=== PATIENT | male | born 1950 | race Caucasian/White ===

== ENCOUNTER → 2017-07-16 | Outpatient (CLI) | payer MEDICARE ==
[~2017-07-16] MED LIST: ASPIR 8181 MG PO; CYMBALTA60 MG PO; DILANTIN100 MG PO; MOBIC15 MG PO; MOBIC7.5 MG PO; NEURONTIN 300M300 M2 PO; NORCO 7.5-3251 EACH PO; TRAMADOL 50 MG50 MG PO; TRAMADOL HCL150 MG PO; TYLENOL P.M. E1 EAC3 PO; TYLENOL PM EX-1 EACH PO; ZANAFLEX4 MG PO; ZOCOR 20 MG TAB20 M1 PO; [UNRECOGNIZED DRUG - OTHER] PO; benzotropine PO
--- NOTE | 2017-07-21 07:21 | PAINCON ---
[address] [address] PAIN MANAGEMENT CONSULTATION Name: ANIYA FRANCISCO Room: [facility] Isaias#: [id number] Admission: 07/16/17 Attend Phys: Vikash Alexander Discharge: Date of : 52 Report #: [id number] THIS REPORT FOR: //name// CC: Jim Potter DATE OF SERVICE: 07/16/2017 The patient is a very pleasant 67-year-old gentleman typically treated for lumbar radiculopathy, progressed to have a decompressive laminectomy, myofascial pain requiring complex medication management. Last visit, we did a right L5 transforaminal epidural injection 05/21/2017 with improvement of radicular pain, in fact he notes the radicular pain in the right side is essentially gone. He has had several incidental issues. The patient developed some tremor in his right hand. He typically notices it when he is tired or at the end of the day. Dr. Clark started him on benztropine with some efficacy. He has been on it about 2 weeks now. The patient has seen IBAN Esquivel, she recommended 2 books on managing pain and dietary recommendations. He is working with her regarding anxiety, stress and coping skills for chronic pain. In the interval since we last saw him, he did travel to [place], did a fair bit of walking, has developed increasing pain. This is a little different than prior. This is actually in the left low back in the SI area radiating to the lateral hip. Exacerbated with standing or walking. He is relatively comfortable when he is recumbent. PHYSICAL EXAMINATION: Shows a 67-year-old gentleman, BMI is 27 kilograms per meter squared. Blood pressure 152/78, pulse 81, respirations 18. Alert and oriented to person, place and time, judged to be a reasonable historian. Cervical range of motion is generally full. Does not exhibit tremor in the right arm at this time. Rises from chair using armrest. Gait is mildly antalgic, somewhat favoring the left leg, has significant tenderness over the left SI. I am pleased to note that straight leg raise is negative bilaterally. Lower extremity strength is generally preserved. Positive Deyvi test on the left, no pain over the hip and no pain with resistance to abduction (negative trochanteric bursa). Positive Gaenslen's test. ASSESSMENT: Symptomatic sacroiliac joint dysfunction by clinical exam, history of lumbar radiculopathy status post decompressive laminectomy, relatively quiescent at present. RECOMMENDATION: 1. Continue tramadol 50 mg 1 tablet up to 5 a day, [place] [address] PAIN MANAGEMENT CONSULTATION Name: ANIYA FRANCISCO Room: [facility] YOVANA Esparza#: [id number] Admission: 07/16/17 Attend Phys: Vikash Alexander Discharge: Date of : 52 Report #: [id number] for 150 tablets with 3 refills. 2. I have taken the liberty of writing for hydrocodone 7.5/325, limit 40 tablets. He can use this for significant pain and is not met with the tramadol. He is somewhat loathe to use a stronger opiate than tramadol, but he did have significant exacerbation of pain when he was walking on his trip to [place]. We wanted to have some agent to be available for "rescue." 3. Left SI joint injection under fluoroscopy today. We talked about core strengthening exercises and follow up simply as needed. PROCEDURE NOTE: Left SI joint injection under fluoroscopy. PROCEDURE: After informed consent was obtained, the patient was taken to the fluoroscopy suite and placed in prone position. After sterile prep and drape, skin wheal was raised. A 22-gauge stylet needle was placed to contact the inferior aspect of the left SI. 1 mL of Omnipaque was injected showed spread primarily into the joint. 40 mg triamcinolone plus 2 mL of 0.5% preservative-free bupivacaine injected into and around the joint. Needle was removed, area was cleansed, Band-Aids applied. The patient was allowed to ambulate to recovery room, monitored for an appropriate period of time. When the patient got up to leave, he did have some weakness in the left leg. We kept him for a prolonged stay, about an hour. He was starting to see a resolution of the "spread" of local anesthetic. He had a little sciatic weakness. We talked about this being not unexpected sequelae of injection. We had covered this in the risks, benefits prior to the procedure. The patient was discharged in good stable condition. I assured the patient that leg should continue to get stronger back to baseline within a few hours. If he has any concerning issues with weakness greater than 24 hours, we will have him return to the clinic for further evaluation. Discharged in good and stable condition. <ELECTRONICALLY SIGNED> By: Inocente Potter DO 07/21/17 0721 1252 1947Inocente Potter DO /nt
== END | disposition home or self-care (01) ==
LOC: M.PC 01:38
DX: M53.3 Sacrococcygeal disorders, not elsewhere classified (principal); M54.16 Radiculopathy, lumbar region; Z98.890 Other specified postprocedural states

== ENCOUNTER → 2017-08-27 | Outpatient (CLI) | payer MEDICARE ==
--- NOTE | 2017-08-28 09:41 | PAINCON ---
[address] [address] PAIN MANAGEMENT CONSULTATION Name: ANIYA FRANCISCO Room: [facility] Isaias#: [id number] Admission: 08/27/17 Attend Phys: Vikash Alexander Discharge: Date of : 51 Report #: [id number] THIS REPORT FOR: //name// CC: Jim Potter DATE OF SERVICE: 08/27/2017 HISTORY OF PRESENT ILLNESS: The patient is a very pleasant 67-year-old gentleman being treated for lumbar radiculopathy status post decompressive laminectomy. Component of SI mediated pain, we did an SI joint injection back in June which did afford good relief of his axial back pain. He returns to the pain clinic today. He had reluctantly started taking 1 hydrocodone 7.5/325 in the morning. He is taking less tramadol. We talked about concerns for opiate habituation and tolerance. Apparently, the patient's father had been habituated to opiates for "multiple decades." The patient personally is very aware of risks of habituation, tolerance, etc. We had had a long talk about decreasing tramadol of which he was taking 5 a day and using a single hydrocodone for ongoing pain. He is doing well, taking 1 hydrocodone in the morning and 2 or 3 tramadol in the evening. He does complain of ongoing right radicular pain, somewhat in an L4 pattern, lateral leg. Notes if he stands or walks for any period of time, leg becomes quite problematic and does interfere with function. PHYSICAL EXAMINATION: GENERAL: Does show pleasant 67-year-old gentleman, BMI is about 25 kilograms per meter squared. VITAL SIGNS: Stable as noted on the chart (blood pressure 124/95, pulse of 79, respirations of 16). MUSCULOSKELETAL: Rises from chair using the armrest. Gait is nominally antalgic, though he does have objective decreased right dorsiflexion strength. Grossly positive straight leg raise on the right and diminished right patellar reflex. He had prior had lumbar decompressive laminectomy on 01/10/2017. We reviewed the fact that opiate medications are being used to provide analgesia adequate to support activities of daily living, not attempting to achieve a specific pain score on the 0-10 Visual Analog Scale. The current opiate medications are providing sufficient analgesia to allow the patient to participate in activities of daily living. The patient is not exhibiting any aberrant behavior suggestive of drug diversion. The patient is not having any adverse reactions to medications. The patient is not suffering from daytime somnolence or mental acuity changes. The patient is managing opiate-induced constipation with appropriate xjkm-hrw-fzylos[place] [address] PAIN MANAGEMENT CONSULTATION Name: ANIYA FRANCISCO Room: [facility] YOVANA Esparza#: [id number] Admission: 08/27/17 Attend Phys: Vikash Alexander Discharge: Date of : 51 Report #: [id number] considerations. The patient was counseled on concern for caution with operating a motor vehicle while using opiate medications. A physical exam was performed and the patient's functional status was evaluated. All patients with back pain were advised against the bed rest greater than 4 days and were advised to return to normal activities. Pain score assessment was noted and the treatment plan was reviewed with the patient. All current medications, both prescribed and OTC were reviewed and reconciled on the electronic medical record. Tobacco screening was accomplished and smoking cessation was advised when indicated. BMI was noted and diet/exercise modification was recommended for all patients following outside normal parameters. I reviewed with the patient today their responsibilities to safeguard prescription medications, reviewed their responsibility to utilize medications only as prescribed by the physician. They are to seek and receive pain medications only from 1 physician group ( [facility]). They are to use 1 pharmacy and keep the clinic informed if they change pharmacies. Their responsibilities include making followup visits in a timely fashion and to avoid abrupt discontinuation of medication usage. Their responsibilities further include bringing their medications (bottles from the pharmacy with residual pills) to the visit for possible confirmation of pill counts and the patient understands it is their responsibility to submit to random drug screens to ensure both that the medications prescribed are present, and that no other controlled substances are present. All prescriptions provided today were generated electronically. ASSESSMENT: Symptomatic lumbar radiculopathy, status post decompressive laminectomy, ongoing chronic pain requiring complex medication management with right L4 radicular pain pattern. RECOMMENDATIONS: 1. The patient has been worked with Dr. Lauren Boyd regarding coping skills. He follows with his neurologist, Dr. Clark. He is doing well on current medication, but has had ongoing right L4 radicular pain. We will seek MRI of lumbar spine with and without contrast. 2. Hydrocodone 7.5/325, dispensed 30 tablets 4-week release, take 1 a day. He just started taking the prior prescription I gave him for 40 tablets, 10 days ago, so he should have quantity sufficient for another 30 days. 3. We will see the patient back in about 7 weeks to reevaluate. At that time, we will go over the MRI. If he has surgical pathology, we will move forward with referring the patient back to surgery. If he does not have obvious surgical pathology, we may consider spinal cord stimulator as a possible therapeutic option. The patient discharged in good and stable condition after approximately [facility] [address] [place] [address] PAIN MANAGEMENT CONSULTATION Name: ANIYA FRANCISCO Room: [facility] Esparza#: [id number] Admission: 08/27/17 Attend Phys: Vikash Alexander Discharge: Date of : 51 Report #: [id number] 25-minute visit from 8:10-8:35, greater than 50% of the time spent counseling the patient. <ELECTRONICALLY SIGNED> By: Inocente Potter DO 08/28/17 0941 0835 [id number] Potter DO /nt
== END ==
LOC: M.PC 01:45
DX: M54.16 Radiculopathy, lumbar region (principal); G89.29 Other chronic pain; Z79.899 Other long term (current) drug therapy

== ENCOUNTER → 2017-08-28 | Outpatient (CLI) | payer MEDICARE | LOC: M.MRI 14:02 | DX: M54.16 Radiculopathy, lumbar region (principal); M47.896 Other spondylosis, lumbar region ==

== ENCOUNTER → 2017-09-17 | Outpatient (CLI) | payer MEDICARE ==
--- NOTE | 2017-09-22 08:02 | PAINCON ---
[facility] [address] [place] [address] PAIN MANAGEMENT CONSULTATION Name: ANIYA FRANCISCO Room: [facility] Tyron.#: [id number] Admission: 09/17/17 Attend Phys: Vikash Alexander Discharge: Date of : 51 Report #: [id number] THIS REPORT FOR: //name// CC: Jim Potter The patient is a very pleasant 67-year-old gentleman being treated for lumbar radiculopathy status post decompressive laminectomy with ongoing axial back pain, right lateral calf, posterior thigh, charley horse sensation radiating down to the leg. MRI from 08/28/2017 notes neural foraminal stenosis at L5-S1 along with prior decompression at this level. Last visit 07/16/2017 with a left SI joint injection, which helped dramatically with a left SI mediated pain, chronic ongoing right radicular pain remains problematic. Physical exam shows 6 feet tall, 197 pound gentleman, BMI is 26.7 kilograms per meter squared. Blood pressure 133/72, pulse 77, respirations are 16. Rises from chair using armrest, modestly antalgic gait, positive straight leg raise on the right. Right lower extremity strength is about 4/5, left is stronger at 5/5. Gait is tandem. He is alert and oriented to person, place, and time, judged to be a reasonable historian. ASSESSMENT: Symptomatic lumbar radiculopathy, status post decompressive laminectomy. RECOMMENDATION: We made a prolonged discussion today about therapeutic options. At this point, he may benefit from right L5-S1 foraminotomy. However, given prior surgery at this level, typically surgeons are somewhat hesitant to move forward with a reoperation due to scar tissue in the area. The patient is an excellent candidate for spinal cord stimulator. We talked about this at length today. I would recommend a high frequency spinal cord stimulator (Nevro). He did have psychological evaluation, 07/01/2017 with Lauren Boyd. He obviously has no psychological hindrances. He is highly motivated gentleman. He wants to get back to running. He had been a lifelong distance runner. He enjoys physical activity and is quite stymied and how axial back and right lumbar radicular pain has impacted his lifestyle. He is loathe to use opiate analgesics. To this I gave him great credit. We had a prolonged visit from 9:25-9:50. We spent reviewing indications, risks, benefits, and proposed mechanism of action of the spinal cord stimulator. Ultimately, [place] [address] PAIN MANAGEMENT CONSULTATION Name: ANIYA FRANCISCO Room: [facility] YOVANA Esparza#: [id number] Admission: 09/17/17 Attend Phys: Vikash Alexander Discharge: Date of : 51 Report #: [id number] very desirous of moving forward. He states he will discuss with his when they come to a conclusion. He will give us a call to schedule trial. <ELECTRONICALLY SIGNED> By: Inocente Potter DO 09/22/17 0802 1524 1947[facility] Centerjuliette Potter DO /nt
== END ==
LOC: M.PC 00:35
DX: M54.16 Radiculopathy, lumbar region (principal)

== ENCOUNTER → 2017-10-08 | Outpatient (CLI) | payer MEDICARE ==
--- NOTE | 2017-10-09 09:37 | PAINCON ---
[facility] [address] [place] [address] PAIN MANAGEMENT CONSULTATION Name: ANIYA FRANCISCO Room: [facility] YOVANA Esparza#: [id number] Admission: 10/08/17 Attend Phys: Vikash Alexander Discharge: Date of : 51 Report #: [id number] THIS REPORT FOR: //name// CC: Jim Potter DATE OF SERVICE: 10/08/2017 HISTORY OF PRESENT ILLNESS: The patient is a very pleasant 67-year-old gentleman, being treated for lumbar radiculopathy, status post decompressive laminectomy, axial back pain and lumbar radicular pain. Last seen in the pain clinic on 09/17/2017. We elected to proceed with spinal cord stimulator trial today. The patient presents to pain clinic today for same. Notes the pain is ongoing low back, right leg. Vital signs are stable as noted in the chart. ASSESSMENT: Symptomatic lumbar radiculopathy status post decompressive laminectomy, axial back pain, failed back syndrome. PROCEDURE: 2-lead spinal cord stimulator trial, thoracolumbar under fluoroscopy. DESCRIPTION OF PROCEDURE: After written and informed consent was obtained, intravenous access was established. The patient was given 1 gram of Ancef, taken to the fluoroscopy suite and placed in prone position with appropriate abdominal bolstering. Wide surgical prep and drape was accomplished. Skin wheal with Xylocaine was raised. A stab incision with a #11 scalpel was made. A 14-gauge epidural Tuohy needle was inserted and placed in the interspinous ligaments between T12 and L1. Stylet was removed and saline filled glass syringe was attached. Using biplanar fluoroscopy and continuous plunger pressure, the needle was easily advanced in the epidural space. Lead was then advanced in the posterior aspect of the epidural space to the top of T8. Procedure was repeated approximately 1 cm inferior with another right paramedian approach into the T12-L1 epidural space and a second lead easily advanced into the posterior aspect of the epidural space to the top of T9. AP and lateral projections showed good needle placement. With continuous fluoroscopy, the stylets and needles were removed. The leads were secured with Steri-Strips and mastic. Wide bolster dressing was applied. The patient was allowed to ambulate to recovery room, monitored for an appropriate period of time, discharged in good and stable condition. Fluoroscopy time was under 30 seconds. Follow up in 1 week for reevaluation. Has contact information for the pain clinic physician president educational institution at [facility] if he has any concerns with increasing pain, [place] [address] PAIN MANAGEMENT CONSULTATION Name: ANIYA FRANCISCO [id number] Admission: 10/08/17 Attend Phys: Vikash Alexander Discharge: Date of : 52 Report #: [id number] weakness, paresthesia, fever, chills. Otherwise, we will contact the [employer], spinal cord stimulator device rep. <ELECTRONICALLY SIGNED> By: Inocente Potter DO 10/09/17 0937 1452 [id number] Potter DO /nt
== END | disposition home or self-care (01) ==
LOC: M.PC 04:41
DX: Z46.2 Encounter for fitting and adjustment of other devices related to nervous system and special senses (principal); M54.16 Radiculopathy, lumbar region; M96.1 Postlaminectomy syndrome, not elsewhere classified; Z98.890 Other specified postprocedural states; Z79.82 Long term (current) use of aspirin; Z79.891 Long term (current) use of opiate analgesic; Z79.899 Other long term (current) drug therapy

== ENCOUNTER → 2017-10-15 | Outpatient (CLI) | payer MEDICARE ==
--- NOTE | 2017-10-20 08:35 | PAINCON ---
[address] [address] PAIN MANAGEMENT CONSULTATION Name: ANIYA FRANCISCO Room: [facility] Isaias#: [id number] Admission: 10/15/17 Attend Phys: Vikash Alexander Discharge: Date of : 51 Report #: [id number] THIS REPORT FOR: //name// CC: Jamar Potter The patient is a very pleasant 67-year-old gentleman long treated for lumbar radiculopathy. Ultimately, I have referred him to Dr. Onel Fairbanks and he had a right microdiskectomy L5-S1 on 01/09/2017. Unfortunately, he had continued to have ongoing lumbar radicular pain, had failed conservative therapies including epidural injections, both midline and targeted transforaminal. Progressed to have a spinal cord stimulator on 10/08/2017 (Nevro high frequency). He returns to the pain clinic today noting dramatic improvement in function following the trial. He was able to sleep better and use nominal pain medication (typically would use tramadol 50 mg 2 in the afternoon and 1 in the evening, tizanidine for spasm and hydrocodone 7.5/325 up to 1 a day along with meloxicam 15 mg a day). The patient is very desirous to moving forward with spinal cord stimulator implant. He would like to have this done with percutaneous leads as soon as possible. I suggested we refer the patient to Dr. London Callejas for percutaneous implant of high frequency spinal cord stimulator (Nevro). Lead was removed today, area was cleansed, Band-Aids applied, insertion site looks good. The patient was given contact information for Dr. London Callejas and we will send his medical records as well. On reviewing the patient's history, is a delightful gentleman, retired manager ecommerce. He had been a marathoner, enjoyed running with his daughters. He had run 5K, 10K, and half marathons including marathons throughout his life. He had enjoyed reasonably good health. He took a statin agent for dyslipidemia and some multivitamins. Surgical history include only tonsillectomy in childhood and the aforementioned microdiskectomy by Dr. Onel Fairbanks last year. Today, I did take the liberty of renewing hydrocodone 7.5/325 one tablet as needed for pain, limit 60 tablets, I renewed tramadol 50 mg up to 5 tablets a day, 150 tablets with 3 refills and tizanidine 4 mg 1 tablet t.i.d. 90 prescription with a refill. I will be happy to see the patient on an as needed basis. I did inform the patient that I am leaving the practice and he will need to find a pain clinic physician on his insurance panel. He does live in the [place] area and we will see if Dr. Keo Wilkins can continue to manage his care, [place] [id number] PAIN MANAGEMENT CONSULTATION Name: ANIYA FRANCISCO Room: [facility] YOVANA Esparza#: [id number] Admission: 10/15/17 Attend Phys: Vikash Alexander Discharge: Date of : 51 Report #: [id number] with a spinal cord stimulator implant he actually may not require any pain management moving forward. Discharged in good and stable condition. <ELECTRONICALLY SIGNED> By: Inocente Potter DO 10/20/17 0835 1427 0030Inocente Potter DO /chiquita
== END ==
LOC: M.PC 03:03
DX: M54.16 Radiculopathy, lumbar region (principal)

== ENCOUNTER → 2018-01-08 | Outpatient (CLI) | payer MEDICARE ==
--- NOTE | 2018-01-14 14:16 | PAINCON ---
[place] [address] PAIN MANAGEMENT CONSULTATION Name: FRANCISCOANIYA RAHMAN Room: [facility].Vikas.#: [id number] Admission: 01/08/18 Attend Phys: Moise Wilkins MD Discharge: Date of : 51 Report #: [id number] THIS REPORT FOR: //name// CC: Moise Laws MD DATE OF SERVICE: 01/08/2018 PRIMARY CARE PHYSICIAN: Jim Laws MD FOLLOWUP COMPLAINT: Low back pain into the right leg. FOLLOWUP HISTORY: The patient is a 67-year-old gentleman who has been followed in the pain clinic at [facility] by Dr. Inocente Potter. This is my first visit with the patient. The patient has had a long history of pain problems. He has undergone back surgery. He has undergone treatment for chronic low back pain. He has had some problems with neck pain in the past. He has been treated for lumbosacral spondylosis. The patient has undergone a radiofrequency lesioning of the medial branches in the low back area involving the lower back. He has undergone sacroiliac joint injections. He has undergone physical therapy for strengthening exercises, yoga, massage, sports, chiropractic manipulations, acupuncture and medication management. He has been treated with opioid medications and complex medication management for this chronic pain. The patient has had cervical epidural steroid injection for cervical radicular pains. MRI on 10/03/2016 indicated an L5-S1 superimposed broad-based right foraminal disk protrusion extending into the right lateral region resulting in severe right neural foraminal stenosis and effacement of the exiting nerve root at L5. ALLERGIES: No known drug allergies. MEDICATIONS: Meloxicam 15 mg every other day. Medications, which were used, but have been discontinued include aspirin 81 mg, hydrocodone 7.5/325, tizanidine 4 mg t.i.d., Ultram, turmeric as well as benztropine. The patient continues with Mobic 15 mg, Zocor 20 mg, and tramadol 50 mg as directed. PAST MEDICAL HISTORY: Problems with diverticulosis, joint disease/arthritis, CVA (Dejerine-Roussy syndrome), cervical radiculopathy. PAST SURGICAL HISTORY: Tonsillectomy in 9, tonsillectomy in 1963. Spinal cord stimulator implant on 12/09/2017. SOCIAL HISTORY: He is a retired environmental program manager. REVIEW OF SYSTEMS: Headache, nosebleed, frequent diarrhea, abdominal pain, [place] [address] PAIN MANAGEMENT CONSULTATION Name: ANIYA FRANCISCO [id number] Admission: 01/08/18 Attend Phys: Moise Wilkins MD Discharge: Date of : 52 Report #: [id number] numbness and tingling. PAIN CLINIC ASSESSMENT: 1. History of osteoarthritic changes in the low back area. 2. Height 6 feet, weight 194 pounds, BMI is 26.3. 3. Vital signs: Blood pressure 163/103, heart rate 90, respiratory rate 16, room air saturation 97%, temperature 98.4. 4. Pain intensity 0/10, does have some mid-morning aching, which improves with use of tramadol. 5. Blood thinner. The patient is not on a blood thinning medication. 6. Hypertension. The patient is not on an antihypertensive medication, opioid therapy greater than 6 weeks. The patient is using tramadol. 7. Risk assessment tool. 8. Functional assessment tool. 9. Recreational drug use. The patient denies use of recreational drugs. 10. Tobacco. The patient denies use of tobacco. 11. Alcoholic beverage. The patient denies chronic use of alcoholic beverages. 12. All of the other aforementioned past medical history events. IMPRESSION: Low back pain - right leg pain. RECOMMENDATIONS: We discussed treatment options with the patient. At this juncture, we will continue with his current medical regimen. He feels that the spinal cord stimulator has been working very well. We will continue with tizanidine 4 mg p.o. p.r.n. muscle spasms, a total of 180 have been written. The patient will call us if he has any concerns. He will continue with his current medical regimen and follow up with his surgeon. We would like to thank you for letting us participate in his care. We hope he continues to improve. <ELECTRONICALLY SIGNED> By: Moise Wilkins MD 01/14/18 1416 2324 0151Beena. Keo Wilikns MD /ANA
== END ==
LOC: M.PC 03:19
DX: M54.5 Low back pain (principal); M79.604 Pain in right leg; G89.29 Other chronic pain; Z79.899 Other long term (current) drug therapy

== ENCOUNTER → 2018-09-11 | Outpatient (CLI) | payer MEDICARE | LOC: M.ULTRA 12:47 | DX: R20.0 Anesthesia of skin (principal); R20.2 Paresthesia of skin; Z86.73 Personal history of transient ischemic attack (TIA), and cerebral infarction without residual deficits ==

== ENCOUNTER → 2018-10-01 | Outpatient (CLI) | payer MEDICARE ==
[~2018-10-01] MED LIST changes: +PRILOSEC OTC20 MG PO
--- NOTE | ~2018-10-01 | PAINCON ---
[address] [address] PAIN MANAGEMENT CONSULTATION Name: ANIYA FRANCISCO Room: [facility] YOVANA Esparza#: [id number] Admission: 10/01/18 Attend Phys: Moise Wilkins MD Discharge: Date of : 52 Report #: [id number] THIS REPORT FOR: //name// CC: Heide Wilkins DATE OF SERVICE: 10/01/2018 CHIEF COMPLAINT: Right leg pain. HISTORY: The patient is a 68-year-old gentleman who has been followed in the pain clinic because of chronic pain. As you may recall, he has right leg pain. He has undergone placement of a spinal cord stimulator. Feels that this is 90% beneficial. He is happy with the procedure and the results. Continues to take hydrocodone on occasional basis. He would like to continue with his medications. He has requested a script for tramadol. He continues to be quite active. States that he runs about 5 miles every other day. He has undergone radiofrequency lesioning in the medial branches in the low back area in the past. Has had SI joint injections. Continues with physical therapy, continues to stretch, he is quite active. He has had chiropractic manipulations. He has had cervical radicular pain and epidural steroid injections. He returns today with a desire to have his medications renewed. ALLERGIES: No known drug allergies. CURRENT MEDICATIONS: Meloxicam 15 mg every other day, medications use, but discontinued his aspirin 81 mg, hydrocodone 7.5 mg, tizanidine 4 mg 1 p.o. t.i.d., Ultram, turmeric as well as benztropine. Continues to find Mobic, Zocor and tramadol beneficial. PAIN CLINIC ASSESSMENT/PQRS: 1. The patient has history of osteoarthritic changes in his low back area. 2. Height 6 feet, weight 200 pounds, BMI is 27.3. 3. Vital signs: Blood pressure 151/106, heart rate 83, respiratory rate 16, room air saturation 94%, and temperature 98.3. 4. Pain intensity 0/10. 5. Blood thinner. The patient is not on a blood thinning medication. 6. Hypertension. The patient is not being treated for hypertension. 7. Opioids. The patient uses tramadol medication. 8. Risk assessment tool, low for opioid use. 9. Recreational drug use. The patient denied. 10. Tobacco: The patient denies use of tobacco. 11. Alcohol: The patient denies chronic use of alcoholic beverages. PHYSICAL EXAMINATION: GENERAL: The patient is a well-developed, well-[place] [address] PAIN MANAGEMENT CONSULTATION Name: ANIYA FRANCISCO Room: [facility] Esparza#: [id number] Admission: 10/01/18 Attend Phys: Moise Wilkins MD Discharge: Date of : 52 Report #: [id number] his stated age. He is alert and oriented x 3. Affect is appropriate. Speech is fluent. HEENT: Normocephalic, atraumatic. Extraocular eye muscles intact. Sclerae nonicteric. Mucous membranes are moist. NECK: Without adenopathy or JVD. The patient is without significant scoliosis, kyphosis or lordosis. Upper extremity muscle strength judged to be 5/5 for the major muscle groups in lower extremities 5/5 for the major muscle groups in the lower extremity. IMPRESSION: Chronic pain in low back area improved with a spinal cord stimulator. RECOMMENDATIONS: We will continue with his current medications of tramadol 50 mg 1 p.o. every 4 hours p.r.n. The patient will call us if he has any concerns. We would like to thank you for letting us participate in his care. We hope he continues to improve. By: [id number]. Keo Wilikns MD /nt
== END ==
LOC: M.PC 05:19
DX: G89.29 Other chronic pain (principal); M54.5 Low back pain; Z79.899 Other long term (current) drug therapy; Z79.891 Long term (current) use of opiate analgesic

== ENCOUNTER → 2019-07-27 | Outpatient (CLI) | payer MEDICARE ==
--- NOTE | 2019-07-30 08:24 | PAINCON ---
[address] [address] PAIN MANAGEMENT CONSULTATION Name: ANIYA FRANCISCO Room: [facility] Esparza#: [id number] Admission: 07/27/19 Attend Phys: Moise Wilkins MD Discharge: Date of : 52 Report #: [id number] THIS REPORT FOR: //name// cc: Jessica Casey Kathleen M. DO ~ THIS REPORT FOR: //name// CC: JESSICA CASEY DO Jessica Wilkins DATE OF SERVICE: 07/27/2019 CHIEF COMPLAINT: The stimulator has worked very well. HISTORY: The patient is a 69-year-old gentleman who has been followed in the pain clinic because of chronic pain in the low back area. As you may recall, he underwent placement of a spinal cord stimulator. He feels that this has been quite beneficial. He is able to do quite a number of things with less pain and discomfort. He has some pain down in his right leg and low back area. He still walks and runs a couple of times a week. He rates his pain as a 2/10. Overall, he is very pleased with his choice of receiving a spinal cord stimulator. He has a history of cervical radiculopathy and has undergone epidural steroid injections in the cervical area. He is not having very much discomfort at this point. He finds that the meloxicam medication is helpful. He is not having any problems with his stomach as a result of use of this nonsteroidal anti-inflammatory medication. He also uses tramadol as 3 to 4 tablets daily. He has returned today to continue with his use of tramadol as well as renewal of his meloxicam. ALLERGIES: No known drug allergies. CURRENT MEDICATIONS: Meloxicam 15 mg every other day, hydrocodone 7.5 mg in the past and using tramadol at this juncture, tizanidine 4 mg, turmeric, benztropine, Zocor. PAIN CLINIC ASSESSMENT AND PQRS: 1. The patient has a history of osteoarthritis with changes in his low back area. He is not being treated for rheumatoid arthritis. 2. Height 6 feet 0 inches, weight 203 pounds, BMI is 27.6. 3. Vital signs: Blood pressure 151/98, heart rate 81, respiratory rate 16, room air saturation 98%, and temperature 98.1. 4. Pain score 2/10. 5. Fall history: The patient has not fallen in the last 3 months. 6. Blood thinner. The patient is not on a blood thinning medication. 7. Hypertension. The patient is not being [place] [address] PAIN MANAGEMENT CONSULTATION Name: NOLANCAMERON Room: [facility]#: [id number] Admission: 07/27/19 Attend Phys: Moise Wilkins MD Discharge: Date of : 52 Report #: [id number] 8. Opioids. The patient uses tramadol to help control with the pain. 9. Recreational drug use: The patient denies. 10. Tobacco: The patient denies use of tobacco. 11. Alcohol: The patient denies chronic use of alcoholic beverages. PHYSICAL EXAMINATION: GENERAL: The patient is a well-developed, well-nourished white male. Appears his stated age. He is alert and oriented x 3. His affect is appropriate. Speech is fluent. HEENT: Normocephalic, atraumatic. Extraocular eye muscles intact. Sclerae nonicteric. Mucous membranes are moist. NECK: Without adenopathy or JVD. The patient is not complaining of problems with the upper extremity. MUSCULOSKELETAL: Upper extremity muscle strength judged to be 5-/5 for the major muscle groups in the upper extremity. Lower extremity muscle strength 5/5 for the major muscle groups in lower extremity. The patient has some pain in the low back area and some pain down into his right leg, but not very problematic at this point. IMPRESSION: Chronic pain, improved with spinal cord stimulator. RECOMMENDATIONS: We discussed treatment options with the patient. At this juncture, we will continue with the patient's use of tramadol. He finds that taking this medication continues to be efficacious. He is not having any problems with it. He finds that meloxicam has been helpful. He is not having any GI complaints. He will continue with the medication. Should he notice some GI problems, he will then stop taking the medication and if need be he can call his primary or call the pain clinic. The patient is aware that opioid medications can be problematic. He states he is very happy that he is not having to take opioid medications. His experience with his father was not a particularly good one because of the use of opioid medications. He felt that his father had some dependence on these medications. A script for his medications of tramadol 50 mg one p.o. q. 4-6 hours p.r.n. has been written. The patient will also continue with meloxicam 15 mg 1 p.o. daily or every other day as needed. We would like to thank you for letting us participate in his care. We hope he continues to improve. <ELECTRONICALLY SIGNED> By: Moise Wilkins MD 07/30/19 [id number]. Keo Wilkins MD /chiquita
== END ==
LOC: M.PC 10:32
DX: G89.29 Other chronic pain (principal); Z79.899 Other long term (current) drug therapy

== ENCOUNTER → 2019-12-28 | Outpatient (CLI) | payer MEDICARE ==
--- NOTE | 2019-12-29 11:31 | PAINCON ---
[address] [address] PAIN MANAGEMENT CONSULTATION Name: ANIYA FRANCISCO Room: [facility] M.Vikas.#: [id number] Admission: 12/28/19 Attend Phys: Moise Wilkins MD Discharge: Date of : 52 Report #: [id number] THIS REPORT FOR: //name// cc: Jessica Le Todd A. MD ~ THIS REPORT FOR: //name// CC: JESSICA Montgomery DATE OF SERVICE: 12/28/2019 CHIEF COMPLAINT: Pain is about 0 today. HISTORY: The patient is a 69-year-old gentleman who has been followed in the pain clinic because of lumbar radiculopathy. He has been using a nerve stimulator. The spinal cord stimulator has provided him a significant amount of pain relief. He rates his pain 0 at this point. He does note sometimes if he stands for a prolonged period of time that he gets some pain in the anterior portion of his right leg. He then increase his stimulator 1 notch. After a few hours, he then turned it back down. He has found that leaving the stimulator up in the higher level can cause some pain and discomfort in it of itself. He feels that the tramadol medication is quite efficacious. He feels that the meloxicam is helpful. He is not any having problems with his bowel or bladder function. He does not have any problems with his GI tract because of the nonsteroidal anti-inflammatory medication. He has noted some discomfort in his hands. They have been hurting over the last couple of months. He feels that tramadol helps in that area as well. He would like to have his medications renewed. ALLERGIES: No known drug allergies. CURRENT MEDICATIONS: Meloxicam 15 mg every other day, hydrocodone 7.5 mg in the past and uses tramadol 50 mg 4 hours , omeprazole 20 mg, simvastatin 20 mg, Extra Strength Tylenol at bedtime. PAIN CLINIC ASSESSMENT AND PQRS: 1. The patient has a history of osteoarthritis, has had some changes in his low back area. He is not being treated for rheumatoid arthritis. 2. Height 6 feet 0, weight 202 pounds, BMI is 27. 3. Vital Signs: Blood pressure 149/95, heart rate 79, respiratory rate 16, room air saturation 98%, temperature 98.3. 4. Pain intensity is 0/10. 5. Fall history: The patient has not fallen in the last 3 [place] [address] PAIN MANAGEMENT CONSULTATION Name: ANIYA FRANCISCO Room: [facility]#: [id number] Admission: 12/28/19 Attend Phys: Moise Wilkins MD Discharge: Date of : 52 Report #: [id number] 6. Blood thinner. The patient is not on a blood thinning medication. 7. Hypertension. The patient is not being treated for hypertension. 8. Opioids. The patient uses tramadol. 9. Recreational drug use. The patient denies. 10. Tobacco: The patient denies, has not smoked in 40 years. 11. Alcohol: The patient rarely drinks alcoholic beverages. PHYSICAL EXAMINATION: GENERAL: The patient is a well-developed, well-nourished white male. Appears his stated age. He is alert and oriented x 3. His affect is appropriate. Speech is fluent. HEENT: Normocephalic, atraumatic. Extraocular eye muscles intact. Sclerae nonicteric. Mucous membranes are moist. The patient is wearing glasses. He has a mask on. HEART: Regular rate. LUNGS: Clear to auscultation. MUSCULOSKELETAL: Upper extremity muscle strength judged to be 5/5 for the major muscle groups in the upper extremity. Lower extremity muscle strength judged to be 5/5 for the major muscle groups in the upper extremity. The patient has some pain in the anterior portion of his right leg with prolonged standing. It is not problematic at this juncture. The patient does complain of some pain in his hands, which has been more problematic over the last month. He is choosing tramadol and finds it is helpful. IMPRESSION: Chronic pain improved after spinal cord stimulator. RECOMMENDATIONS: We discussed treatment options with the patient. At this juncture, we will continue with his tramadol. He continues to find it is efficacious. We will also continue with meloxicam 15 mg every other day. He will stop taking this medication if it causes some problems with his GI. He feels overall that things are going well. He feels that it was a good move to undergo spinal cord stimulation with his current device. He will call us if he has any problems. We would like to thank you for letting us participate in his care. We hope he continues to improve. <ELECTRONICALLY SIGNED> By: Moise Wilkins MD 12/29/19 1131 [id number]. Keo Wilkins MD /ANA
== END ==
LOC: M.PC 04:51
PROVIDERS: ATTEND Anesthesiology Pain Medicine
DX: M54.16 Radiculopathy, lumbar region (principal); Z87.891 Personal history of nicotine dependence; Z79.899 Other long term (current) drug therapy

== ENCOUNTER → 2020-05-04 | Outpatient (CLI) | payer MEDICARE | LOC: M.PC 09:28 | PROVIDERS: ATTEND Anesthesiology Pain Medicine | DX: M54.16 Radiculopathy, lumbar region (principal) ==

== ENCOUNTER → 2020-09-21 | Outpatient (CLI) | payer MEDICARE ==
[~2020-09-21] MED LIST changes: +AMITRIPTYLINE H10 M1 PO; +HYDROCODONE-AP1 EA11 PO
== END ==
LOC: M.PC 11:38
PROVIDERS: ATTEND Anesthesiology Pain Medicine
DX: M25.562 Pain in left knee (principal)

== ENCOUNTER → 2021-01-18 | Outpatient (CLI) | payer MEDICARE | LOC: M.PC 09:30 | PROVIDERS: ATTEND Anesthesiology Pain Medicine | DX: M54.16 Radiculopathy, lumbar region (principal); G89.29 Other chronic pain; Z79.891 Long term (current) use of opiate analgesic; Z79.899 Other long term (current) drug therapy ==